=== PATIENT | male | born 1950 | race Caucasian/White ===

== ENCOUNTER 2017-04-10 11:30 | Inpatient (IN) | payer OTHER ==
[~2017-04-10] VITALS: Ht 170.2 cm; Wt 86.3 kg
[2017-04-16] MEDS ORDERED: OMEP40CA37 PO (12:05)
[2017-04-16 12:12] LABS: BASOPHILS % (AUTO) 0.2 % (0-1); EOSINOPHILS # (AUTO) 0.1 X10'3 (0-0.9); EOSINOPHILS % (AUTO) 1.4 % (0-6); LYMPHOCYTES # (AUTO) 1.6 X10'3 (1.1-4.8); LYMPHOCYTES % (AUTO) 29.3 % (21-51); MEAN CORPUSCULAR HEMOGLOBIN 25.8 PG (27.0-31.0); MEAN CORPUSCULAR HGB CONC 33.2 % (33.0-36.5); MEAN CORPUSCULAR VOLUME 77.6 FL (78-98); MEAN PLATELET VOLUME 9.2 FL (7.4-10.4); MONOCYTES # (AUTO) 0.6 X10'3 (0-0.9); MONOCYTES % (AUTO) 10.6 % (2-12); NEUTROPHILS # (AUTO) 3.2 X10'3 (1.8-7.7); NEUTROPHILS % (AUTO) 58.5 % (42-75); PRE OP HEMATOCRIT 43.7 % (42.0-52.0); PRE OP HEMOGLOBIN 14.5 g/dL (14.0-17.9); PRE OP PLATELET COUNT 192 X10'3 (140-440); RED BLOOD COUNT 5.63 X10'6 (4.70-6.10); RED CELL DISTRIBUTION WIDTH 16.7 % (11.5-14.5)
[2017-04-16 12:24] LABS: PRE OP PROTIME 10.6 SECONDS (9.0-12.0)
[2017-04-16 12:29] LABS: ALBUMIN 3.9 G/DL (3.4-5.0); ALBUMIN/GLOBULIN RATIO 1.1 (1.1-1.5); ALKALINE PHOSPHATASE 107 IU/L (46-116); BLOOD UREA NITROGEN 15 MG/DL (7-18); BUN/CREATININE RATIO 16.3 (5.4-32.0); CALCIUM 8.9 MG/DL (8.5-10.1); CHLORIDE 104 MMOL/L (99-107); CREATININE 0.92 MG/DL (0.60-1.10); PRE OP ALT 32 U/L (30-65); PRE OP ANION GAP 8 (8-16); PRE OP AST 21 U/L (10-37); PRE OP BILIRUB, TOTAL 0.5 MG/DL (0.0-1.0); PRE OP GLUCOSE 96 MG/DL (70-104); PRE OP POTASSIUM 4.1 MMOL/L (3.4-5.1); PRE OP SODIUM 142 MMOL/L (135-145); TOTAL CARBON DIOXIDE 30.4 MMOL/L (24-32); TOTAL PROTEIN 7.4 G/DL (6.4-8.2); eGFR 83 ML/MIN
[2017-04-24] VITALS (18 sets, daily range): BP systolic 106–142; BP diastolic 72–100
[2017-04-24] MEDS ORDERED: ringers solution, lacted 1,000 ML IV SCH ×2 (05:00→13:14)
[2017-04-24] MEDS ORDERED: VANCOMYCIN INJ 1000 MG in NORMAL SALINE 250ml IV.SOLN IV ONE (05:30)
[2017-04-24] MEDS ORDERED: famotidine 20mg tablet PO ONE (05:30)
[2017-04-24] MEDS ORDERED: cefazolin/dext.iso 2gm/50ml 50 ML IV ONE (05:30)
[2017-04-24] MEDS ORDERED: fentaNYL/PF 50MCG/1 ML 2ML syringe ONE (11:58)
[2017-04-24] MEDS ORDERED: MIDAZolam 5mg/5ml vial ONE (11:59)
[2017-04-24] MEDS ORDERED: sevoflurane 250ml liquid IH ONE (12:07)
[2017-04-24] MEDS ORDERED: cloNIDine hcl/PF 100mcg/ml inj ONE (12:13)
[2017-04-24] MEDS ORDERED: BUPIVAcaine 0.5% inj/PF 30 ML ONE (12:13)
[2017-04-24] MEDS ORDERED: morphine 4 MG/ML inj SYRINge IV PRN ×2 (13:15)
[2017-04-24] MEDS ORDERED: meperidine/PF 50mg/ml syringe IV PRN ×3 (13:15)
[2017-04-24] MEDS ORDERED: proCHLORperazine 10 MG/2 ml inj IV PRN (13:15)
[2017-04-24] MEDS ORDERED: ondansetron/PF 4mg/2ml inj IV PRN ×2 (13:15→15:20)
[2017-04-24] MEDS ORDERED: propofol inj 20 ML IV ONE (14:46)
[2017-04-24] MEDS ORDERED: acetaminophen 325mg tablet PO PRN (15:20)
[2017-04-24] MEDS ORDERED: magnesium hydroxide 30ml (MOM) UD suspension PO PRN (15:20)
[2017-04-24] MEDS ORDERED: CADD PCA waste documentation MC PRN (15:20)
[2017-04-24] MEDS ORDERED: metoclopramide 5 mg/ml inj IV PRN (15:20)
[2017-04-24] MEDS ORDERED: bisacodyl 10mg suppository rectal RC PRN (15:20)
[2017-04-24] MEDS ORDERED: mag hydrox/Alum hydrox/simeth 30ml oral suspension PO PRN (15:20)
[2017-04-24] MEDS ORDERED: diphenhydrAMINE 25mg capsule PO PRN ×2 (15:20)
[2017-04-24] MEDS ORDERED: naloxone 0.4 mg/ml inj IV PRN (15:20)
[2017-04-24] MEDS: HYDROmorphone/NS 1 mg/ml CADD 50 ML IV SCH ×5 (16:45→23:00)
[2017-04-24] MEDS: potassium cl 20mEq in 1/2 NS 1,000 ML IV SCH ×2 (17:13→23:18)
[2017-04-24] MEDS: cefazolin 1gm/NS 100mL 100 ML IV SCH (17:13)
[2017-04-24] MEDS: HYDROcodone/acetaminophen 10/325mg tab PO PRN (19:21)
[2017-04-24] MEDS ORDERED: vancomycin/NS 1 GM ADD-VANTAGE 250 ML IV SCH (20:00)
[2017-04-24] MEDS: celeCOXIB 100mg capsule PO SCH (20:20)
[2017-04-24] MEDS: sennosides/docusate sodium tablet PO SCH (20:20)
[2017-04-24] MEDS: ascorbic acid 500mg tablet PO SCH (20:20)
[2017-04-24] MEDS ORDERED: sennosides 8.6mg tablet PO SCH (21:00)
[2017-04-25 00:40] VITALS: BP 117/76
[2017-04-25] MEDS: HYDROmorphone/NS 1 mg/ml CADD 50 ML IV SCH ×4 (01:00→07:00)
[2017-04-25] MEDS: cefazolin 1gm/NS 100mL 100 ML IV SCH (01:24)
[2017-04-25] MEDS: HYDROcodone/acetaminophen 10/325mg tab PO PRN ×3 (01:25→09:57)
[2017-04-25 05:00] VITALS: BP 113/82
[2017-04-25 05:52] LABS: ANION GAP 9 (8-16); CHLORIDE 105 MMOL/L (99-107); POTASSIUM 4.5 MMOL/L (3.5-5.1); SODIUM 137 MMOL/L (135-145); TOTAL CARBON DIOXIDE 23.5 MMOL/L (24-32)
[2017-04-25] MEDS ORDERED: HYDR-3972 PO (06:53)
[2017-04-25] MEDS: potassium cl 20mEq in 1/2 NS 1,000 ML IV SCH (07:18)
[2017-04-25 07:29] LABS: BASOPHILS % (AUTO) 0.1 % (0-1); EOSINOPHILS # (AUTO) 0.1 X10'3 (0-0.9); EOSINOPHILS % (AUTO) 1.2 % (0-6); HEMATOCRIT 37.2 % (42.0-52.0); HEMOGLOBIN 12.2 g/dl (14.0-17.9); LYMPHOCYTES % (AUTO) 12.4 % (21-51); MEAN CORPUSCULAR HEMOGLOBIN 25.5 PG (27.0-31.0); MEAN CORPUSCULAR HGB CONC 32.7 % (33.0-36.5); MEAN PLATELET VOLUME 8.7 FL (7.4-10.4); MONOCYTES # (AUTO) 0.7 X10'3 (0-0.9); NEUTROPHILS # (AUTO) 6.1 X10'3 (1.8-7.7); NEUTROPHILS % (AUTO) 77.3 % (42-75); PLATELET COUNT 169 X10'3 (140-440); RED BLOOD COUNT 4.77 X10'6 (4.70-6.10); RED CELL DISTRIBUTION WIDTH 16.8 % (11.5-14.5); WHITE BLOOD COUNT 7.9 X10'3 (4.5-11.0)
[2017-04-25] MEDS ORDERED: pantoprazole 40mg Tablet.DR PO PRN (07:30)
[2017-04-25] MEDS ORDERED: enoxaparin 40mg/0.4ml syringe SQ SCH (08:00)
[2017-04-25] MEDS ORDERED: multivitamins, therapeutics tablet PO SCH (08:00)
[2017-04-25] MEDS ORDERED: pantoprazole 40mg Tablet.DR PO ONE (08:16)
[2017-04-25] MEDS ORDERED: pantoprazole 40mg Tablet.DR PO SCH (08:16)
[2017-04-25] MEDS: sennosides/docusate sodium tablet PO SCH (09:56)
[2017-04-25] MEDS: ascorbic acid 500mg tablet PO SCH (09:56)
[2017-04-25] MEDS: celeCOXIB 100mg capsule PO SCH (09:56)
[2017-04-25 10:00] VITALS: BP 113/82
== END 2017-04-25 11:05 | disposition home or self-care (01) | DRG 483 ==
LOC: PAS IN 04-24 10:58 → EDSTATUS 04-24 13:30 → ORTHO 4S 04-24 16:52
PROVIDERS: ADMIT Orthopaedic Surgery; ATTEND Orthopaedic Surgery
PROC: 3E0T3BZ Introduction of Anesthetic Agent into Peripheral Nerves and Plexi, Percutaneous Approach (ICD-10-PCS; 2017-04-24)
PROC: 0RRJ0JZ Replacement of Right Shoulder Joint with Synthetic Substitute, Open Approach (ICD-10-PCS; principal; 2017-04-24 12:07)
DX: M19.011 Primary osteoarthritis, right shoulder (principal); E66.8 Other obesity; I10 Essential (primary) hypertension; K21.9 Gastro-esophageal reflux disease without esophagitis; Z82.49 Family history of ischemic heart disease and other diseases of the circulatory system; Z68.29 Body mass index [BMI] 29.0-29.9, adult
CPT/HCPCS: 36415; 73020; 80051; 80053; 85025; 85610; 85730; 86885; 86900; 86901; 87070; 93005; 97116; 97161; 97530; A6255; A6449; J0690; J0735; J1170; J1650; J2250; J2704; J3010; J3370; J3490; J7120